=== PATIENT | female | born 1970 | race Caucasian/White ===

== ENCOUNTER 2019-09-02 15:30 | Emergency (ER) | payer OTHER ==
[~2019-09-02] VITALS: Ht 165.1 cm; Wt 63.5 kg
[~2019-09-02 15:30] MED LIST: ACYCLOVIR 400400 MG PO; AUGMENTIN 875875 MG PO; CELEXA10 MG PO; IBUPROFEN 800800 M1 PO; LEVOTHYROXIN0.025 MG PO; REVIA 50 MG TAB50 M1 PO; TRAMADOL 50 MG50 MG PO; TRAZODONE HCL100 MG PO
[2019-09-02] MEDS ORDERED: ADDERALL 20 MG20 MG PO (15:45)
[2019-09-02] MEDS ORDERED: MINIVELLE1 EAC1 TOP (15:45)
[2019-09-02] MEDS ORDERED: PROGESTERO50 MG/1 M3 PO (15:45)
[2019-09-02 16:07] LABS: INFLUENZA A ANTIGEN Negative (Negative); INFLUENZA B ANTIGEN Negative (Negative)
[2019-09-02] MEDS ORDERED: ZPAK PO (17:09)
[2019-09-02] MEDS ORDERED: VENTOLIN HFA 1818 GM INH (17:09)
[2019-09-02] MEDS ORDERED: MEDROLDOSEPACK PO (17:09)
[2019-09-02 17:18] VITALS: BP 131/68
== END 2019-09-02 17:18 | disposition home or self-care (01) ==
LOC: M.ERS 15:30
PROVIDERS: Nurse Practitioner Family
DX: J06.9 Acute upper respiratory infection, unspecified (principal); Z98.890 Other specified postprocedural states

== ENCOUNTER 2020-12-26 12:30 | Emergency (ER) | payer OTHER ==
[~2020-12-26] VITALS: Ht 165.1 cm; Wt 63.5 kg
[~2020-12-26 12:30] MED LIST changes: +ADDERALL 20 MG20 MG PO; +MEDROLDOSEPACK PO; +MINIVELLE1 EAC1 TOP; +PROGESTERO50 MG/1 M3 PO; +VENTOLIN HFA 1818 GM INH; +ZPAK PO
[2020-12-26] MEDS ORDERED: FLEXERIL PO (14:26)
[2020-12-26] MEDS ORDERED: IBU600 MG PO (14:26)
[2020-12-26] MEDS ORDERED: HYDROCODON-ACE1 EAC7 PO (14:28)
[2020-12-26 14:31] VITALS: BP 148/72
== END 2020-12-26 14:32 | disposition home or self-care (01) ==
LOC: M.ERS 12:30
DX: S02.2XXA Fracture of nasal bones, initial encounter for closed fracture (principal); Z79.899 Other long term (current) drug therapy; Y04.8XXA Assault by other bodily force, initial encounter; Y93.89 Activity, other specified; Y92.89 Other specified places as the place of occurrence of the external cause; Y99.8 Other external cause status

== ENCOUNTER 2021-03-10 15:51 | Emergency (ER) | payer OTHER ==
[~2021-03-10] VITALS: Ht 165.1 cm; Wt 65.8 kg
[~2021-03-10 15:51] MED LIST changes: +FLEXERIL PO; +HYDROCODON-ACE1 EAC7 PO; +IBU600 MG PO
[2021-03-10] MEDS ORDERED: FLEXERIL PO (16:07)
[2021-03-10] MEDS ORDERED: CELEXA 10 MG TA10 M1 PO (16:07)
[2021-03-10] MEDS ORDERED: SYNTHROID175 MC1 PO (16:07)
[2021-03-10] MEDS ORDERED: DEXADRINE (16:08)
[2021-03-10] MEDS ORDERED: AMITIZA8 MCG PO (16:08)
[2021-03-10] MEDS ORDERED: ACYCLOVIR 400400 MG PO (16:08)
[2021-03-10 16:24] VITALS: BP 147/108
== END 2021-03-10 16:57 | disposition left against medical advice (07) ==
LOC: M.ERS 15:51
DX: R06.02 Shortness of breath (principal); Z53.21 Procedure and treatment not carried out due to patient leaving prior to being seen by health care provider